=== PATIENT | female | born 1980 | race Caucasian/White ===

== ENCOUNTER 2016-09-19 03:03 | Emergency (ER) | payer SELFPAY ==
--- NOTE | ~2016-09-19 | ER ---
PATIENT'S NAME: ELLIE BASS [facility] AGE: 35 Y [address] ROOM: [place] [address] LOCATION: [facility] ADMIT DATE: 09/19/2016 ER/Outpatient Report DISCHARGE DATE: FAMILY PHYSICIAN: , NO ATTENDING PHYSICIAN: Celestine Eisenberg Time of Arrival: 0303 hours. Time of Evaluation: 0319 hours. CHIEF COMPLAINT: Abdominal pain, nausea, and vomiting. HISTORY OF PRESENT ILLNESS: The patient is a 35-year-old female, who presents to the emergency department today with chief complaint of nausea, vomiting, diarrhea, as well as abdominal pain. She reports the abdominal pain is all over. It is crampy in nature. It is currently 4/10 in severity. She reports these symptoms started getting worse at 9 o'clock. She has had diarrhea for 2 days. She reports 10 episodes of vomiting in the past 24 hours and 10 episodes of diarrhea in the past 24 hours. Denies any urinary frequency, urgency, or painful urination. Denies any fevers or chills. PAST MEDICAL HISTORY: MRSA in the past, otherwise negative. PAST SURGICAL HISTORY: , cholecystectomy, appendectomy, tubal ligation, right hand, colonoscopy. SOCIAL HISTORY: The patient denies any tobacco, alcohol, or illicit drug use. ALLERGIES: NO KNOWN DRUG ALLERGIES. MEDICATIONS: None. ROS: All systems are reviewed by myself and are negative with the exception of those discussed in HPI and past medical history. PHYSICAL EXAMINATION: VITAL SIGNS: Weight 59.3 kg, blood pressure 176/65, pulse 106, respiratory rate 18, temperature 98.4, oxygen saturation 98% on room air. PATIENT'S NAME: ELLIE BASS [facility] AGE: 35 Y [address] ROOM: [place] [address] LOCATION: [facility] ADMIT DATE: 09/19/2016 ER/Outpatient Report DISCHARGE DATE: FAMILY PHYSICIAN: PHYSICIAN, NO ATTENDING PHYSICIAN: Celestine Eisenberg GENERAL: The patient is 35-year-old female, appears stated age. Well- developed, well-nourished, in no acute distress at this time. HEENT: Head: Normocephalic, atraumatic. Pupils are equal, round, and reactive to light and accommodation. Extraocular motions are intact. Nares are patent bilaterally. TMs are clear. Oropharynx is clear. Mucous membranes are moist. NECK: Supple. There is no nuchal rigidity. CARDIOVASCULAR: Tachycardic. No murmurs, rubs, or gallops. LUNGS: Clear to auscultation bilaterally. No wheezes, rales, or rhonchi. ABDOMEN: Soft, nontender, and nondistended. No rebound, rigidity, or guarding. MUSCULOSKELETAL: The patient moves all 4 extremities. SKIN: Warm and dry. There are no rashes or lesions noted. LABORATORY DATA AND X-RAYS: CBC is unremarkable except for white blood cell count of 12.9. CMP is unremarkable except for potassium 3.1, chloride 111, CO2 of 20. LFTs normal. Urinalysis shows 25 leukocyte esterase, 30 protein, 10 blood, 5-10 wbc's, 2-5 epithelials, and rare bacteria. IMPRESSION: 1. Nausea and vomiting. 2. Diarrhea. 3. Acute generalized nonsurgical abdominal pain. 4. Initial visit. EMERGENCY DEPARTMENT COURSE: The patient was brought back to the examination room. Seen and evaluated by myself. IV is established. The patient was given a 1 L of normal saline, 4 mg of Zofran. Repeat dose of nausea medicine, Zofran, as well as 2 mg of morphine are given. The patient's abdominal exam is repeated. She continues to have a nonsurgical abdominal exam at this time. I have discussed following up with the primary care doctor in 2 days for re-evaluation. I have discussed [id number]-ce-[id number] instructions including worsening symptoms or any other concerns to return to the emergency department as soon as possible. I have written a prescription for Zofran for home. The patient has requested a work note. This is provided. DISPOSITION: The patient is discharged home in good condition. CELESTINE EISENBERG DO PATIENT'S NAME: ELLIE BASS [facility] AGE: 35 Y [address] ROOM: [place] [address] LOCATION: ED ADMIT DATE: 09/19/2016 ER/Outpatient Report DISCHARGE DATE: FAMILY PHYSICIAN: PHYSICIAN, NO ATTENDING PHYSICIAN: Celestine Eisenberg/ann mariel /[id number] d: 09/19/16 0545 t: 09/27/16 0948, OUTPATIENT REPORT
[2016-09-19 03:54] LABS: BILIRUBIN URINE NEGATIVE (NEGATIVE); BLOOD URINE 10 /UL (NEGATIVE); COLOR URINE YELLOW (YELLOW); GLUCOSE URINE NEGATIVE (NEGATIVE); KETONE URINE NEGATIVE (NEGATIVE); LEUKOCYTES URINE 25 /UL (NEGATIVE); NITRITE URINE NEGATIVE (NEGATIVE); PROTEIN URINE 30 mg/dL (NEGATIVE); SPEC GRAVITY URINE 1.025 (1.003-1.035); TURBIDITY URINE 1+ (CLEAR); UROBILINOGEN URINE NORMAL (NORMAL)
[2016-09-19 03:57] LABS: BASOPHIL # 0.1 K/uL (0.0-0.2); BASOPHIL % 0.4 %; EOSINOPHIL % 0.2 %; HEMOGLOBIN 12.2 g/dL (11.0-15.0); IMMATURE GRANULOCYTE % 0.3 %; LYMPHOCYTE # 1.8 K/uL (0.8-4.0); LYMPHOCYTE % 14.2 %; MCH 28.1 pg (27.0-34.0); MCV 85.3 fl (83.0-98.0); MONOCYTE # 0.6 K/uL (0.0-1.0); MONOCYTE % 4.9 %; MPV 9.1 fl (9.4-12.4); NEUTROPHIL # (ANC) 10.4 K/uL (1.8-7.8); NRBC % 0 /100WBC (0-0.00); PLATELET COUNT 339 K/uL (150-450); RBC 4.34 M/uL (3.50-5.50); RDW-CV 12.4 % (11.9-14.6); WBC 12.9 K/uL (4.0-11.0)
[2016-09-19 04:07] LABS: BACTERIA URINE RARE (NEGATIVE); MUCUS URINE 2+ (NEGATIVE); RBC URINE 0-2 #/HPF (NEGATIVE)
[2016-09-19 04:23] LABS: ALBUMIN 3.9 gm/dL (3.5-5.0); ALK PHOS 66 IU/L (33-138); ALT 18 IU/L (12-78); ANION GAP 13.5 (10.0-19.0); AST 11 IU/L (10-40); BLOOD UREA NITROGEN 9 mg/dL (6-24); CALCIUM 8.6 mg/dL (8.5-10.5); CHLORIDE 111 mMol/L (96-110); CO2 20 mMol/L (22-32); CREATININE 0.8 mg/dL (0.5-1.1); ESTIMATED GFR (MDRD EQUATION) > 60; POTASSIUM 3.5 mMol/L (3.7-5.1); SODIUM 141 mMol/L (135-145); TOTAL BILIRUBIN 0.4 mg/dL (0.0-1.5); TOTAL PROTEIN 7.8 g/dL (6.0-8.4)
== END 2016-09-19 05:45 | disposition disaster alternative care site (69) ==
LOC: GMED 03:03
PROVIDERS: Emergency Medicine
DX: R11.2 Nausea with vomiting, unspecified (principal); R19.7 Diarrhea, unspecified; R10.84 Generalized abdominal pain; Z90.49 Acquired absence of other specified parts of digestive tract; Z98.51 Tubal ligation status; Z98.890 Other specified postprocedural states
CPT/HCPCS: J0780; J1200; J2270; J2405; J7030

== ENCOUNTER 2016-10-16 11:20 | Emergency (ER) | payer SELFPAY ==
--- NOTE | ~2016-10-16 | ER ---
PATIENT'S NAME: ELLIE BASS [facility] AGE: 35 Y [address] ROOM: [place] [address] LOCATION: [facility] ADMIT DATE: 10/16/2016 ER/Outpatient Report DISCHARGE DATE: 10/16/2016 FAMILY PHYSICIAN: PHYSICIAN, NO ATTENDING PHYSICIAN: Shahab Ibarra CHIEF COMPLAINT: Left jaw pain and swelling. HISTORY OF PRESENT ILLNESS: The patient presents for evaluation of jaw pain and swelling on the left side, which has been present since Sunday. She has been taking pvqk-qil-afoeosx medications for this. She has been using some Orajel on which she thinks is an infected tooth. The pain is under the jaw and on the left side. She denies any difficulties breathing or swallowing, but does have painful chewing on the left side. PAST MEDICAL HISTORY: Documented on the record and reviewed by me. SOCIAL HISTORY: Documented on the record and reviewed by me. MEDICATIONS: Documented on the record and reviewed by me. ALLERGIES: DOCUMENTED ON THE RECORD AND REVIEWED BY ME. REVIEW OF SYSTEMS: All systems were reviewed and negative except as noted in the HPI. PHYSICAL EXAMINATION: VITAL SIGNS: Blood pressure 123/80, pulse is 90, respiratory rate is 18, temperature is 98.9, SpO2 is 96% on room air. Pain is rated at 10/10. GENERAL: An age appropriate female, in obvious discomfort in a position on the bed, in no respiratory distress. NEUROLOGIC: Awake and alert. GCS 15. No focal deficits. No asymmetry on exam. HEENT: Normocephalic, atraumatic. Eyes are PERRL. Oropharynx is grossly clear with teeth in poor repair. The left lower premolar is notable for fracture and caries. There is some fullness of the left mandible tissues. There is tenderness to the floor of the mouth, not particularly full or firm. Shotty cervical adenopathy. NECK: Supple. Trachea is midline, otherwise. PATIENT'S NAME: ELLIE BASS [facility] AGE: 35 Y [address] ROOM: [place], [place] [address] LOCATION: [facility] ADMIT DATE: 10/16/2016 ER/Outpatient Report DISCHARGE DATE: 10/16/2016 FAMILY PHYSICIAN: PHYSICIAN, NO ATTENDING PHYSICIAN: Shahab Ibarra HEART: Regular rate and rhythm with no murmurs. LUNGS: Clear to auscultation bilateral with no rhonchi, wheezes, or rales. ABDOMEN: Soft, nontender, and nondistended. No rebound or guarding. BACK: Back is normal to inspection and palpation. EXTREMITIES: Warm and well perfused. SKIN: Clean, dry, and intact. LABORATORY DATA AND X-RAYS: CT of the neck and soft tissue reveals a left infected tooth with a subperiosteal abscess, likely with no evidence of abscess to the floor of the mouth or deeper spaces of the neck. Lactate is 1.9, WBC is 19.3, hemoglobin 12.4, platelets of 370. INR is 1. CMS with elevation of chloride at 111, CO2 is 21. No abnormally elevated LFTs. GFR is greater than 60. CRP is 7.65. Procalcitonin is 2.98. IMPRESSION: Abscessed tooth. EMERGENCY DEPARTMENT COURSE: The patient was seen and evaluated as above. She was given fentanyl for pain and clindamycin for presumed facial abscess secondary due to infected tooth abscess. Based on pain and swelling at the floor of the mouth, a CT angio of the neck was obtained. There is no evidence of Shun angina on that scan. The patient did have a prior reaction to some contrast and was given Benadryl and Solu-Medrol prior to that. She was hydrated with NS at 150 an hour. She was given Zofran for nausea. She was feeling much better at that time. She stated she wanted to follow up with dentist, Dr. Myrick, here in [place]. I contacted his office and they stated they would likely be able to take care of this patient, provided she could have the appropriate resources. I will discharge the patient home on prescription for penicillin and a prescription for Hoven. Appropriate driving and alcohol intoxication instructions were reviewed. The patient expressed her understanding. All questions were answered and the patient was discharged in stable condition. MD BLANCA MISHRA/cristian /[id number] d: 10/17/16 0116 t: 05/24/17 1011, OUTPATIENT REPORT
[2016-10-16 12:11] LABS: BASOPHIL % 0.2 %; EOSINOPHIL % 0.1 %; HEMATOCRIT 38.4 % (33.0-46.0); HEMOGLOBIN 12.4 g/dL (11.0-15.0); IMMATURE GRANULOCYTE # 0.1 K/uL (0.0-0.3); IMMATURE GRANULOCYTE % 0.5 %; LYMPHOCYTE # 2.1 K/uL (0.8-4.0); LYMPHOCYTE % 10.6 %; MCH 28.4 pg (27.0-34.0); MCHC 32.3 gm/dL (32.0-36.5); MCV 87.9 fl (83.0-98.0); MONOCYTE # 0.8 K/uL (0.0-1.0); MONOCYTE % 4.4 %; MPV 9.4 fl (9.4-12.4); NEUTROPHIL # (ANC) 16.2 K/uL (1.8-7.8); NEUTROPHIL % 84.2 %; NRBC % 0 /100WBC (0-0.00); PLATELET COUNT 370 K/uL (150-450); RBC 4.37 M/uL (3.50-5.50); RDW-CV 12.5 % (11.9-14.6); WBC 19.3 K/uL (4.0-11.0)
[2016-10-16 12:22] LABS: INR - (THERAPEUTIC) 1.01 (0.92-1.07); PROTIME 10.6 SECONDS (9.8-11.4); PTT 28 SECONDS (25-32)
[2016-10-16 12:38] LABS: ALBUMIN 3.8 gm/dL (3.5-5.0); ALK PHOS 70 IU/L (33-138); ALT 21 IU/L (12-78); ANION GAP 12.7 (10.0-19.0); AST 9 IU/L (10-40); BLOOD UREA NITROGEN 12 mg/dL (6-24); CALCIUM 8.5 mg/dL (8.5-10.5); CHLORIDE 111 mMol/L (96-110); CO2 21 mMol/L (22-32); CREATININE 0.8 mg/dL (0.5-1.1); ESTIMATED GFR (MDRD EQUATION) > 60; POTASSIUM 3.7 mMol/L (3.7-5.1); SODIUM 141 mMol/L (135-145); TOTAL PROTEIN 7.9 g/dL (6.0-8.4)
[2016-10-16 12:39] LABS: TOTAL BILIRUBIN 0.7 mg/dL (0.0-1.5)
== END 2016-10-16 13:28 | disposition disaster alternative care site (69) ==
LOC: GMED 11:20
PROVIDERS: Emergency Medicine
DX: K04.7 Periapical abscess without sinus (principal); Z98.51 Tubal ligation status; Z86.14 Personal history of Methicillin resistant Staphylococcus aureus infection; Z98.890 Other specified postprocedural states
CPT/HCPCS: J1200; J2405; J2930; J3010; J7030; Q9967

== ENCOUNTER 2016-10-18 09:37 | Emergency (ER) | payer SELFPAY ==
--- NOTE | ~2016-10-18 | ER ---
PATIENT'S NAME: ELLIE BASS [facility] AGE: 35 Y [address] ROOM: [place] [address] LOCATION: [facility] ADMIT DATE: 10/18/2016 ER/Outpatient Report DISCHARGE DATE: 10/18/2016 FAMILY PHYSICIAN: PHYSICIAN, NO ATTENDING PHYSICIAN: Greg Eisenberg Time of arrival: 0937 hours. Time of evaluation: 0945 hours. CHIEF COMPLAINT: Tooth pain. HISTORY OF PRESENT ILLNESS: The patient is a 35-year-old female, who presents to the emergency department today with a chief complaint of tooth pain. She reports that it started about 5 days prior to arrival. She was seen and evaluated in the emergency department on 16/10 that is two days ago. She did attempt to go to a dentist; however, they required a 175 dollars up front, that there were unable to. She has been taking clindamycin orally 150 mg every 6 hours. She complains of 10/10 pain. It is sharp. It is on the left-side. It is worse with chewing. Denies any fevers or chills. No nausea or vomiting. No diarrhea or constipation. PAST MEDICAL HISTORY: MRSA, otherwise, negative. PAST SURGICAL HISTORY: 1. . 2. Cholecystectomy. 3. Appendectomy. 4. Tubal ligation. 5. Right hand colonoscopy. SOCIAL HISTORY: The patient denies any tobacco use. Denies any alcohol use. Does use marijuana. ALLERGIES: NO KNOWN DRUG ALLERGIES. MEDICATIONS: Please see list. PRIMARY CARE DOCTOR: None. PATIENT'S NAME: ELLIE BASS [facility] AGE: 35 Y [address] ROOM: [place] [address] LOCATION: [facility] ADMIT DATE: 10/18/2016 ER/Outpatient Report DISCHARGE DATE: 10/18/2016 FAMILY PHYSICIAN: PHYSICIAN, NO ATTENDING PHYSICIAN: Greg Eisenberg REVIEW OF SYSTEMS: All systems are reviewed by myself and negative with the exception of those discussed in HPI and past medical history. PHYSICAL EXAMINATION: VITAL SIGNS: Weight 61 kg. Blood pressure 138/80, pulse 90, respiratory rate 16, temperature 99, oxygen saturation 97% on room air. GENERAL: The patient is a 35-year-old female, appears stated age, in acute distress secondary to pain in left-side of her jaw. HEENT: Normocephalic and atraumatic. Pupils are equal, round, and reactive to light and accommodating. Oropharynx, there is no evidence of Shun's angina. The patient does have multiple dental caries in various stages of decay. The patient does have palpable swelling noted to the left lower jaw line. There is swelling noted. It is adjacent to a severely decayed tooth. CARDIOVASCULAR: Regular rate and rhythm. No murmurs, rubs, or gallops. LUNGS: Clear to auscultation bilaterally. No wheezes, rales, or rhonchi. ABDOMEN: Soft, nontender, and nondistended. No rebound, rigidity, or guarding. MUSCULOSKELETAL: The patient moves all 4 extremities. Ambulates steady gait. SKIN: Warm and dry. No rashes or lesions noted. LABORATORY DATA AND X-RAYS: None. IMPRESSION: 1. Periapical abscess, left lower jaw. 2. Inferior alveolar dental block. 3. Initial visit. EMERGENCY DEPARTMENT COURSE: The patient brought back to the examination room. Seen and evaluated by myself. I have reviewed the patient's old records from visit 2 days ago. I have discussed with her that I would recommend an inferior alveolar dental block as well as local infiltration around the tooth. I would then recommend incision and drainage of the abscess. The risks and benefits are discussed with the patient and her significant other who is at the bedside. The patient does wish to proceed with the dental block inferior alveolar block is placed with a one-to-one mixture of 0.5% Marcaine and 1% lidocaine without epinephrine. The area is explored and certainly does have a palpable abscess noted. I have recommended stab incision for drainage, however, as we are waiting for the dental block to work, the patient's significant other has talked with Dr. Ward a local dentist. The local dentist does report the patient can be seen at their clinic tomorrow morning at 8 a.m. I still have recommended incision and drainage of this abscess. However, the patient and PATIENT'S NAME: ELLIE BASS [facility] AGE: 35 Y [address] ROOM: [place] [address] LOCATION: [facility] ADMIT DATE: 10/18/2016 ER/Outpatient Report DISCHARGE DATE: 10/18/2016 FAMILY PHYSICIAN: PHYSICIAN, NO ATTENDING PHYSICIAN: Greg Eisenberg significant other both are prefer to go to the dentist tomorrow at 8 a.m. They will return, if things get worse. I have discussed return to care instructions including worsening symptoms, fevers, chills, or any other concerns to return to the emergency department as soon as possible. I have discussed continuing the clindamycin. I have written a prescription for Percocet 7.5/325 dispensing total of #8. They will follow up with Dr. Ward tomorrow morning at 8 a.m. DISPOSITION: The patient is discharged to home in good condition. DO NICK VELÁZQUEZ/modl /[id number] d: 10/18/16 1511 t: 10/23/16 0803, OUTPATIENT REPORT
== END 2016-10-18 10:23 ==
LOC: GMED 09:37
PROC: 3E0T3BZ Introduction of Anesthetic Agent into Peripheral Nerves and Plexi, Percutaneous Approach (ICD-10-PCS; principal; 2016-10-18)
DX: K04.7 Periapical abscess without sinus (principal); Z90.49 Acquired absence of other specified parts of digestive tract; Z98.51 Tubal ligation status

== ENCOUNTER 2016-10-19 08:22 | Emergency (ER) | payer SELFPAY ==
--- NOTE | ~2016-10-19 | ER ---
PATIENT'S NAME: ELLIE BASS [facility] AGE: 35 Y [address] ROOM: [place] [address] LOCATION: ED ADMIT DATE: 10/19/2016 ER/Outpatient Report DISCHARGE DATE: 10/19/2016 FAMILY PHYSICIAN: PHYSICIAN, NO ATTENDING PHYSICIAN: Celestine Eisenberg CHIEF COMPLAINT: Left-sided facial swelling. HISTORY OF PRESENT ILLNESS: The patient is a 35-year-old female, who presents to the emergency department today with a chief complaint of left-sided facial swelling. She reports that this started 6 days prior to arrival. She was seen and evaluated yesterday by myself. I have recommended incision and drainage at that time. However, the patient refused and wished to go to a dentist. She did see the dentist today. He did not want to mess with it and sent her here. The patient reports some subjective fevers and chills. Pain is currently 10/10 in severity. She denies any cough. No sore throat. No hoarse voice. PAST MEDICAL HISTORY: MRSA. PAST SURGICAL HISTORY: , cholecystectomy, appendectomy, tubal ligation, right hand, and colonoscopy. SOCIAL HISTORY: The patient denies any tobacco or alcohol use. Does report marijuana use. ALLERGIES: TORADOL WHICH CAUSES GI UPSET. MEDICATIONS: Please see list. PRIMARY CARE DOCTOR: None. REVIEW OF SYSTEMS: All systems are reviewed by myself and negative with the exception of those discussed in the HPI and past medical history. PHYSICAL EXAMINATION: VITAL SIGNS: Weight 60.1 kg. Blood pressure 144/90, pulse 90, respiratory rate 18, temperature 98.1, oxygen saturation 95% on room air. PATIENT'S NAME: ELLIE BASS [facility] AGE: 35 Y [address] ROOM: [place] [address] LOCATION: ED ADMIT DATE: 10/19/2016 ER/Outpatient Report DISCHARGE DATE: 10/19/2016 FAMILY PHYSICIAN: PHYSICIAN, OLIVE ATTENDING PHYSICIAN: Celestine Eisenberg GENERAL: The patient is a 35-year-old female, who appears stated age, in mild acute distress secondary to the pain in right face. HEENT: Normocephalic, atraumatic. Pupils are equal, round, and reactive to light. Oropharynx: The patient does have poor dentition with multiple dental caries at various stages of decay. There is a palpable swelling of the left lower jaw. There is an adjacent severely decayed tooth. CARDIOVASCULAR: Regular rate and rhythm. No murmurs, rubs, or gallops. LUNGS: Clear to auscultation bilaterally. No wheezes, rales, or rhonchi. ABDOMEN: Soft, nontender, and nondistended. No rebound, rigidity, or guarding. MUSCULOSKELETAL: The patient moves all 4 extremities. SKIN: Warm and dry. LABORATORY DATA AND X-RAYS: CBC is normal. CMP is unremarkable except for potassium 3.3. LFTs are normal. Lactate is normal. Procalcitonin is 0.16. IMPRESSION: 1. Periapical abscess. 2. Initial visit. EMERGENCY DEPARTMENT COURSE: The patient was brought back to the examination room. Seen and evaluated by myself. IV was established. Laboratory analysis and imaging were obtained as described above. The patient was given 1 L normal saline, 4 mg of Zofran IV, 5 mg of morphine IV as well as 450 mg of clindamycin IV. I have discussed the risks and benefits of incision and drainage of this periapical abscess. The patient does wish to proceed. A written consent was obtained. 1:1 ratio of 0.5% Marcaine and 1% lidocaine without epinephrine were utilized with an inferior alveolar nerve block. Local infiltration was also made. A stab incision was made with an 11 blade. Purulence and blood were expressed. The wound was explored with a sterile Q-tip. I have discussed that the patient needs to continue clindamycin. I have written a prescription for Percocet, dispensing #8. I have discussed with the patient that she needs to be seen in 48 hours for recheck whether that is at a primary care doctor or back to the ER. I have discussed return to care instructions including high fevers, worsening pain, or any other concerns, to return to the emergency department as soon as possible. The patient is agreeable. Boyfriend is agreeable. They are without further questions at the time of disposition. The patient is discharged home in good condition. CELESTINE EISENBERG, DO PATIENT'S NAME: WALKER, ELLIE R [facility] AGE: 35 Y [address] ROOM: [place] [address] LOCATION: [facility] ADMIT DATE: 10/19/2016 ER/Outpatient Report DISCHARGE DATE: 10/19/2016 FAMILY PHYSICIAN: OLIVE VICK ATTENDING PHYSICIAN: Celestine Eisenberg/cristian /[id number] d: 10/19/162025 t: 10/23/16 0803, OUTPATIENT REPORT
[2016-10-19 09:08] LABS: BASOPHIL % 0.1 %; EOSINOPHIL % 0.3 %; HEMATOCRIT 35.8 % (33.0-46.0); HEMOGLOBIN 11.6 g/dL (11.0-15.0); IMMATURE GRANULOCYTE % 0.4 %; LYMPHOCYTE # 1.6 K/uL (0.8-4.0); LYMPHOCYTE % 17.2 %; MCH 28.2 pg (27.0-34.0); MCHC 32.4 gm/dL (32.0-36.5); MCV 86.9 fl (83.0-98.0); MONOCYTE # 0.7 K/uL (0.0-1.0); MONOCYTE % 7.9 %; MPV 8.9 fl (9.4-12.4); NEUTROPHIL # (ANC) 6.7 K/uL (1.8-7.8); NEUTROPHIL % 74.1 %; NRBC % 0 /100WBC (0-0.00); PLATELET COUNT 334 K/uL (150-450); RBC 4.12 M/uL (3.50-5.50); RDW-CV 12.8 % (11.9-14.6); WBC 9.1 K/uL (4.0-11.0)
[2016-10-19 09:27] LABS: ALBUMIN 3.3 gm/dL (3.5-5.0); ALK PHOS 63 IU/L (33-138); ALT 19 IU/L (12-78); ANION GAP 13.3 (10.0-19.0); AST 14 IU/L (10-40); BLOOD UREA NITROGEN 7 mg/dL (6-24); CALCIUM 8.5 mg/dL (8.5-10.5); CHLORIDE 107 mMol/L (96-110); CO2 22 mMol/L (22-32); CREATININE 0.6 mg/dL (0.5-1.1); ESTIMATED GFR (MDRD EQUATION) > 60; POTASSIUM 3.3 mMol/L (3.7-5.1); SODIUM 139 mMol/L (135-145); TOTAL PROTEIN 7.5 g/dL (6.0-8.4)
[2016-10-19 09:35] LABS: TOTAL BILIRUBIN 0.4 mg/dL (0.0-1.5)
== END 2016-10-19 10:37 | disposition disaster alternative care site (69) ==
LOC: GMED 08:22
PROVIDERS: Emergency Medicine
PROC: 0C9XXZ0 Drainage of Lower Tooth, External Approach, Single (ICD-10-PCS; principal; 2016-10-19)
DX: K04.7 Periapical abscess without sinus (principal); Z86.14 Personal history of Methicillin resistant Staphylococcus aureus infection; Z90.49 Acquired absence of other specified parts of digestive tract; Z98.51 Tubal ligation status; Z98.890 Other specified postprocedural states; Z88.8 Allergy status to other drugs, medicaments and biological substances
CPT/HCPCS: J2270; J2405; J7030; J7040